=== PATIENT | female | born 1980 | race Caucasian/White ===

== ENCOUNTER 2016-10-26 18:17 | Emergency (ER) | payer OTHER ==
[2016-10-26 18:29] VITALS: BP 116/78
[2016-10-26] MEDS ORDERED: ONDANSETRON HCL/PF 2 MG/ML VIAL IV ONE (18:37)
[2016-10-26] MEDS ORDERED: NORMAL SALINE 1,000 ML IV ONE (18:37)
[2016-10-26] MEDS ORDERED: ONDANSETRON HCL/PF 2 MG/ML VIAL ONE (18:48)
[2016-10-26 19:07] LABS: Hematocrit 38.6 % (37.0-47.0); Hemoglobin 13.6 gm/dL (12.5-16.0); Mean Cell Volume 88.3 fl (78-100); Mean Corpuscular Hemoglobin 31.1 pg (27-31); Mean Corpuscular Hgb Conc 35.2 g/dl (32-36); Neutrophil # 10.1 K/mm3 (1.3-6.0); Neutrophil % 85.2 % (42-75.0); Platelet Count 284 K/mm3 (150-450); Red Blood Count 4.37 M/mm3 (4.2-5.4); Red Cell Distribution Width 11.8 % (11.5-14.0); White Blood Count 11.9 K/mm3 (4.0-10.5)
--- NOTE | 2016-10-26 19:08 | ERNOTE ---
Medical Problem HPI - Narrative Date of Service: 10/26/16 - General Chief Complaint: Flu Symptoms Time Seen by Provider: 10/26/16 18:32 Source: patient, RN notes reviewed Exam Limitations: no limitations - Immun/Allergies/Home Medications Immunizations: IMMUNIZATION HX Immunizations Up to Date Yes History of Influenza Vaccine No Hx Pneumococcal Vaccination No Allergies/Adverse Reactions: Allergies amoxicillin [Amoxicillin] Adverse Reaction (Mild, Verified 10/26/16 18:29) RASH azithromycin [From Zithromax Z-Josemanuel] Adverse Reaction (Mild, Verified 10/26/16 18 :29) Itching cefdinir [Cefdinir] Adverse Reaction (Mild, Verified 10/26/16 18:29) TWITCHING clindamycin Adverse Reaction (Mild, Verified 10/26/16 18:29) RASH, HEADACHE Home Medications: HOME MEDICATIONS ALPRAZolam [Xanax] 0.5 - 1 mg PO BID PRN 04/28/15 [Last Taken Unknown] Albuterol Sulfate [Proair Hfa] 2 puff IH Q4H PRN 04/28/15 [Last Taken Unknown] Levonorgestrel [Mirena] 1 each IY ONCE 04/28/15 [Last Taken Unknown] Omeprazole [Prilosec] 20 mg PO DAILY 04/28/15 [Last Taken Unknown] Ondansetron [Zofran Odt] 8 mg PO Q8H PRN #12 tab 10/26/16 [Last Taken Unknown] - History of Present History Narrative: 35 y/o female ambulatory to ED for '"flu" symptoms that began yesterday. She reports nausea, vomiting, body aches, chills and watery diarrhea. Date (Duration): 10/25/16 Timing: constant Review of Systems - Review of Systems Constitutional: Present: chills, diaphoresis, fatigue, malaise EYE: Present: no symptoms reported ENT: Absent: nose congestion, sore throat Respiratory: Present: shortness of breath. Absent: cough, wheezing Cardiology: Present: palpitations. Absent: chest pain Gastrointestinal/Abdominal: Present: nausea, vomiting, diarrhea Genitourinary: Absent: frequency, dysuria Musculoskeletal: Present: muscle pain. Absent: joint pain Skin: Absent: rash, lesions Neurological: Present: headache, dizziness/light-headedness Endocrine: Present: no symptoms reported Hematologic/Lymphatic: Present: no symptoms reported Psych: Present: anxiety - Patient's Past Medical History Patient History - Medical: Anxiety Patient History - Cardiac/Respiratory: No pertinent hx Patient History - Cancer: No Hx of Cancer Patient History - Surgical Procedures: , D & C, Other LMP (females 10-50): IUD - Family History Mother Family History - Cardiac/Respiratory: Hypertension Father Family History - Cardiac/Respiratory: Hypertension - Social History Living Situations: home - Immunizations History of Influenza Vaccine: No Physical Exam - Physical Exam General Appearance: Present: wd/wn, alert, mild distress, anxious, crying Neck: Present: normal inspection, nontender, supple Respiratory: Present: no respiratory distress, normal breath sounds, no accessory muscle use, lungs clear Cardiovascular/Chest: Present: regular rate, rhythm, no murmur, normal peripheral pulses Gastrointestinal/Abdominal: Present: normal bowel sounds, nontender, nondistended, soft Back Exam: Present: normal inspection, no CVA tenderness, no vertebral tenderness Extremity Exam: Present: normal inspection, no edema, normal range of motion Neurological Exam: Present: alert, oriented, no motor/sensory deficits Skin Exam: Present: normal color, warm/dry ED Progress - Results and Orders Patient's Lab Results:: I have reviewed the patient's lab results. - Vital Signs Patient's Vital Signs:: I have reviewed the patient's vital signs. Vital Signs: Vital Signs 10/26/16 18:25 Temperature 37.3 C Pulse Rate 115 H Respiratory 19 Rate Blood Pressure 116/78 O2 Sat by Pulse 100 Oximetry - Progress/Reassessment Chief Complaint: Flu Symptoms Progress:: Improved Progress Note-Subjective: Verbalizes feeling much better after IVF bolus and Zofran. One Zofran ODT sent home with patient for later tonight if needed. Departure - Departure Clinical Impression: Viral gastroenteritis Disposition: Home self-care Condition: Good Instructions: Viral Gastroenteritis, Adult, [id number] Additional Instructions: Liquids as discussed Tylenol for fever/aches (ibuprofen may upset your stomach) No anti-diarrhea medications Follow up as needed Prescriptions: Ondansetron [Zofran Odt] 8 mg PO Q8H PRN #12 tab PRN Reason: Nausea
[2016-10-26 19:20] LABS: Albumin * 4.1 gm/dl (3.4-5.0); Anion Gap 16.3 mmol/L (6.8-13.8); BUN/Creatinine Ratio 17.3 (9.0-21.6); Bilirubin, Total 0.9 mg/dL (0.0-1.1); Ca. Corrected For Albumin 8.6 mg/dL (8.4-10.2); Carbon Dioxide 24.4 mmol/L (24-32.6); Potassium 3.7 mmol/L (3.4-4.6); Total Protein 7.7 gm/dL (6.2-8.2)
[2016-10-26] MEDS ORDERED: ONDANSETRON 4 MG TAB.RAPDIS PO ONE (20:04)
[2016-10-26] MEDS ORDERED: ONDANSETRON 4 MG TAB.RAPDIS ONE (20:09)
== END 2016-10-26 20:17 | disposition home or self-care (01) ==
LOC: ER 18:17
DX: A08.4 Viral intestinal infection, unspecified (principal)

== ENCOUNTER 2016-10-28 11:35 | Emergency (ER) | payer OTHER ==
--- NOTE | 2016-10-28 12:33 | ERNOTE ---
Chest Pain/Cardiac HPI Date of Service: 10/28/16 Chief Complaint: Palpitations Time Seen by Provider: 10/28/16 11:59 Source: patient, RN notes reviewed Exam Limitations: no limitations Immunizations: IMMUNIZATION HX Immunizations Up to Date Yes History of Influenza Vaccine Yes Hx Pneumococcal Vaccination No Allergies/Adverse Reactions: Allergies amoxicillin [Amoxicillin] Adverse Reaction (Mild, Verified 10/28/16 11:49) RASH azithromycin [From Zithromax Z-Josemanuel] Adverse Reaction (Mild, Verified 10/28/16 11 :49) Itching cefdinir [Cefdinir] Adverse Reaction (Mild, Verified 10/28/16 11:49) TWITCHING clindamycin Adverse Reaction (Mild, Verified 10/28/16 11:49) RASH, HEADACHE Home Medications: HOME MEDICATIONS Albuterol Sulfate [Proair Hfa] 2 puff IH Q4H PRN 04/28/15 [Last Taken Unknown] Levonorgestrel [Mirena] 1 each IY ONCE 04/28/15 [Last Taken Unknown] Omeprazole [Prilosec] 20 mg PO PRN PRN 04/28/15 [Last Taken Unknown] Pain Score #1 Pain Score: 0 Narrative: 35 y/o female ambulatory to ED for intermittent palpations that began earlier this week. She was seen 2 days ago with vomiting and diarrhea. She was given IVF and Zofran. She felt much better afterward and had no further vomiting or diarrhea. She also reports being under a lot of stress due to breaking up with her significant other and issues with her mother who has a drug problem. Timing: intermittent Associated Symptoms: Present: cough, palpitations. Absent: headache, dizziness , syncope, shortness of breath, diaphoresis, fever/chills, nausea, vomiting, abdominal pain, back pain Prior Treatment: Reports: recently seen Review of Systems - Review of Systems Constitutional: Present: recent illness. Absent: weakness, fatigue EYE: Present: no symptoms reported ENT: Present: no symptoms reported Respiratory: Present: See HPI Cardiology: Present: palpitations. Absent: chest pain, syncope Gastrointestinal/Abdominal: Present: See HPI Genitourinary: Present: no symptoms reported Musculoskeletal: Present: See HPI Skin: Present: no symptoms reported Neurological: Absent: headache, dizziness/light-headedness, weakness, numbness, tingling Endocrine: Present: no symptoms reported Hematologic/Lymphatic: Present: no symptoms reported Psych: Present: anxiety - Patient's Past Medical History Patient History - Medical: Anxiety Patient History - Cardiac/Respiratory: No pertinent hx Patient History - Cancer: No Hx of Cancer Patient History - Surgical Procedures: , D & C, Other LMP (females 10-50): IUD - Family History Mother Family History - Cardiac/Respiratory: Hypertension Father Family History - Cardiac/Respiratory: Hypertension - Social History Living Situations: home Smoking Status: Never smoker Alcohol Use: none Drug Use: none Physical Exam - Physical Exam General Appearance: Present: wd/wn, alert, anxious Neck: Present: normal inspection, nontender, supple. Absent: thyromegaly Respiratory: Present: no respiratory distress, normal breath sounds, no accessory muscle use, lungs clear Cardiovascular/Chest: Present: regular rate, rhythm, no murmur, normal peripheral pulses Neurological Exam: Present: alert, oriented, normal mood/affect, no motor/ sensory deficits Skin Exam: Present: normal color, warm/dry ED Progress - Results and Orders Patient's Lab Results:: I have reviewed the patient's lab results. - Vital Signs Patient's Vital Signs:: I have reviewed the patient's vital signs. Vital Signs: Vital Signs 10/28/16 11:43 Pulse Rate 92 Respiratory 16 Rate Blood Pressure 108/87 O2 Sat by Pulse 97 Oximetry - EKG EKG: NSR EKG read: Interp. by me - Progress/Reassessment Chief Complaint: Palpitations Progress:: Unchanged Progress Note-Subjective: Reported suddenly feeling like she was having palpitations while I was in room - monitor showed an isolated PVC at that time, symptoms lasted only seconds 10/28/16 13:46 Discussed lab and EKG results - all unremarkable. No further palpitations while in dept. Plan - Plan Plan: Patient has Xanax at home to take if needed. Reports she does not like using it d/t it making her tired. Discussed stress management and need to see her PCP if symptoms continue. Departure - Departure Clinical Impression: Anxiety, Intermittent palpitations Disposition: Home Follow Up Needed Condition: Good Instructions: Palpitations, [id number] Additional Instructions: Follow up with your doctor if symptoms worsen or persist Referrals: Moises Manriquez, [Primary Care Provider] -
[2016-10-28 12:34] LABS: Hematocrit 37.1 % (37.0-47.0); Mean Cell Volume 87.7 fl (78-100); Mean Corpuscular Hemoglobin 30.7 pg (27-31); Mean Platelet Volume 9.1 fl (6.0-9.5); Neutrophil # 2.2 K/mm3 (1.3-6.0); Neutrophil % 45.4 % (42-75.0); Platelet Count 257 K/mm3 (150-450); Red Blood Count 4.23 M/mm3 (4.2-5.4); Red Cell Distribution Width 11.9 % (11.5-14.0); White Blood Count 4.8 K/mm3 (4.0-10.5)
[2016-10-28 12:57] LABS: Albumin * 3.8 gm/dl (3.4-5.0); Anion Gap 13.6 mmol/L (6.8-13.8); BUN/Creatinine Ratio 15.3 (9.0-21.6); Bilirubin, Total 0.3 mg/dL (0.0-1.1); Ca. Corrected For Albumin 8.5 mg/dL (8.4-10.2); Calcium * 8.7 mg/dL (7.9-10.9); Potassium 3.6 mmol/L (3.4-4.6); TSH * 2.68 uIU/mL (0.358-3.74); Total Protein 7.6 gm/dL (6.2-8.2)
[2016-10-28 13:44] VITALS: BP 111/73
== END 2016-10-28 13:45 | disposition home or self-care (01) ==
LOC: ER 11:35
DX: F41.9 Anxiety disorder, unspecified (principal); R00.2 Palpitations

== ENCOUNTER 2017-07-18 17:08 | Emergency (ER) | payer OTHER ==
[2017-07-18 17:36] LABS: Hematocrit 39.4 % (37.0-47.0); Hemoglobin 13.5 gm/dL (12.5-16.0); Mean Cell Volume 89.7 fl (78-100); Mean Corpuscular Hemoglobin 30.8 pg (27-31); Mean Corpuscular Hgb Conc 34.3 g/dl (32-36); Mean Platelet Volume 8.8 fl (6.0-9.5); Neutrophil # 4.6 K/mm3 (1.3-6.0); Neutrophil % 58.6 % (42-75.0); Platelet Count 289 K/mm3 (150-450); Red Blood Count 4.39 M/mm3 (4.2-5.4); Red Cell Distribution Width 11.9 % (11.5-14.0); White Blood Count 7.9 K/mm3 (4.0-10.5)
--- NOTE | 2017-07-18 17:46 | ERNOTE ---
Abdominal HPI - Narrative Date of Service: 07/18/17 - General Chief Complaint: Abdominal Pain Time Seen by Provider: 07/18/17 17:26 Source: patient Exam Limitations: no limitations - Immun/Allergies/Home Medications Immunizatons: IMMUNIZATION HX Immunizations Up to Date Yes History of Influenza Vaccine Yes Hx Pneumococcal Vaccination No Allergies/Adverse Reactions: Allergies amoxicillin [Amoxicillin] Adverse Reaction (Mild, Verified 07/18/17 17:19) RASH azithromycin [From Zithromax Z-Josemanuel] Adverse Reaction (Mild, Verified 07/18/17 17 :19) Itching cefdinir [Cefdinir] Adverse Reaction (Mild, Verified 07/18/17 17:19) TWITCHING clindamycin Adverse Reaction (Mild, Verified 07/18/17 17:19) RASH, HEADACHE Home Medications: HOME MEDICATIONS Albuterol Sulfate [Proair Hfa] 2 puff IH Q4H PRN 04/28/15 [Last Taken Unknown] Levonorgestrel [Mirena] 1 each IY ONCE 04/28/15 [Last Taken Unknown] Omeprazole [Prilosec] 20 mg PO PRN PRN 04/28/15 [Last Taken Unknown] - History of Present Illness Narrative: Pt. comes in with R upper and lower quadrant abd pain. Pt. denies any SOB, CP, NVD, fever, alleviating factors, aggravating factors, or prehospital treatment other than going to the [facility] and being sent here for possible appy. Pt. has a reported history of colon cancer removed. Review of Systems - Review of Systems Constitutional: Present: no symptoms reported. Absent: recent illness, fever, chills, weakness, fatigue, malaise EYE: Present: no symptoms reported. Absent: eye pain, double vision ENT: Present: no symptoms reported. Absent: nose pain, nose congestion, nasal drainage, sore throat Respiratory: Present: no symptoms reported. Absent: shortness of breath, cough , wheezing Cardiology: Present: no symptoms reported. Absent: chest pain, palpitations, edema Gastrointestinal/Abdominal: Present: abdominal pain. Absent: nausea, vomiting, diarrhea Genitourinary: Present: no symptoms reported. Absent: frequency, decreased urinary output Musculoskeletal: Present: no symptoms reported. Absent: back pain, joint pain Skin: Present: no symptoms reported. Absent: rash, change in hair/nails Neurological: Present: no symptoms reported. Absent: headache, dizziness/light- headedness, numbness, tingling All Other Systems: All systems neg except as marked - Patient's Past Medical History Patient History - Medical: No pertinent hx Patient History - Cardiac/Respiratory: Asthma Patient History - Cancer: Colon, Surgical Treatment Patient History - Surgical Procedures: Colon Resection - rectum, Patient History - Other: None - Family History Mother Family History - Cardiac/Respiratory: Hypertension Father Family History - Cardiac/Respiratory: Hypertension - Social History Psych History: Hx of Anxiety, Current tx/ever been on anti-depressants or anti- anxiety meds Smoking Status: Never smoker Have you smoked in the past 12 months: No - Immunizations Immunizations Up to Date: Yes Hx Pneumococcal Vaccination: No History of Influenza Vaccine: Yes Physical Exam - Physical Exam General Appearance: Present: wd/wn, alert, no apparent distress Head Exam: Present: normal inspection, no evidence of injury Eye Exam: Normal inspection: bilateral, PERRL: bilateral, EOMI: bilateral Respiratory: Present: no respiratory distress, normal breath sounds, no accessory muscle use, chest nontender, lungs clear Cardiovascular/Chest: Present: regular rate, rhythm, no murmur, normal peripheral pulses Gastrointestinal/Abdominal: Present: normal bowel sounds, nondistended, soft, no organomegaly, tenderness - pinpoint tenderness R mid bdomen Back Exam: Present: normal inspection, no CVA tenderness Extremity Exam: Present: normal inspection Neurological Exam: Present: alert, oriented, normal mood/affect, no motor/ sensory deficits Skin Exam: Present: normal color, warm/dry. Absent: pallor, skin rash ED Progress - Date and Time Seen: Date and Time: 07/18/17 18:[address] Villalobos and as pt. has hx of cancer we will CT abdomen as there is no evidence for acute belly pain on plain film he recommends obtaining a CT scan - Results and Orders Patient's Lab Results:: I have reviewed the patient's lab results. - Vital Signs Patient's Vital Signs:: I have reviewed the patient's vital signs. Vital Signs: Vital Signs 07/18/17 17:14 Temperature 37.1 C Pulse Rate 82 Respiratory 14 Rate Blood Pressure 105/69 O2 Sat by Pulse 95 Oximetry - X-Ray X-Ray #1 X-Ray: abdomen Interpretation: Interp. by me X-ray Comments: mild stool retention no free air, no obstructive gas pattern - CT/Ultrasound CT/Ultrasound Narrative: CT Abdomen/Pelvis W/C * INDICATION: R mid abd pain prev colon CA. Additional technologist comments: Right lower quadrant pain for the past three days. TECHNIQUE: CT of the abdomen and pelvis with Isovue-370 IV contrast including delayed images. Coronal reformatted images were performed. Oral contrast was also administered. Individualized dose optimization technique was used for the performed procedure including automated exposure control, adjustment of the mA and/or kV according to patient size and/or the iterative reconstruction technique. COMPARISON: CT of the abdomen and pelvis dated 10/20/2010 FINDINGS: No free air, free fluid, or fluid collection. Lower chest: The visualized lower lungs are aerated. No pleural or pericardial effusion. ABDOMEN: Liver: There is a 1 cm low-attenuation focus of the left hepatic lobe cyst. There are other scattered subcentimeter low attenuating lesions throughout the liver which are too small to characterize by CT. Otherwise, the liver enhances homogeneously. Gallbladder and biliary: Normal gallbladder without radiopaque stone. Normal caliber bile ducts. Spleen: Normal spleen. Pancreas: The pancreas enhances homogeneously without focal mass, ductal dilation, or peripancreatic inflammatory changes. Adrenal glands: Normal adrenal glands. Kidneys and ureters: There is a 1.1 cm low attenuating lesion in the superior pole the right kidney which is consistent with a cyst. Otherwise, there are numerous scattered subcentimeter hypodensities within both kidneys which are too small to characterize by CT. GI tract: The stomach is distended with debris and appears normal. Small bowel and colon are of normal caliber. The patient is status post partial sigmoidectomy with anastomotic staple line visualized. The appendix is not definitely visualized. Vascular structures: Normal caliber abdominal aorta. The celiac artery, SMA, bilateral renal arteries, and LOIS are patent. Portal and mesenteric venous structures are patent. There are prominent parametrial vasculature with reflux seen within within a prominent left ovarian vein. Lymph nodes: No lymphadenopathy in the abdomen or pelvis. PELVIS: Genitourinary system: The urinary bladder is underdistended and poorly evaluated. An intrauterine device is seen within the uterus. SKELETAL STRUCTURES AND SOFT TISSUES: No fracture or destructive lesions in the visualized skeleton. IMPRESSION: 1. Nonobstructive bowel gas pattern. Prior partial sigmoidectomy. 2. The appendix is not definitely visualized, however there are no secondary signs of acute appendicitis. Lack of mesenteric fat makes evaluation of the appendix difficult. 3. Bilateral renal cysts and hepatic cyst. Multiple other subcentimeter low- attenuation foci within both kidneys and the liver are too small to characterize by CT. 4. Prominent parametrial vasculature with reflux into a distended left ovarian vein which can be seen with pelvic congestion syndrome. Electronically signed by Katerin López D.O.. - Progress/Reassessment Chief Complaint: Abdominal Pain Progress:: Unchanged Departure Clinical Impression: Renal cyst, Liver cyst - Departure Disposition: Home self-care Condition: Good Instructions: Abdominal Pain, Adult, [id number] Additional Instructions: Please follow up with primary provider to follow up and monitor cystic lesions and while these aren't terribly painful or dangerous in themselves they can become a problem so follow up is important. Referrals: Moises Manriquez, [Primary Care Provider] -
[2017-07-18 17:50] LABS: Albumin * 3.9 gm/dl (3.4-5.0); Anion Gap 11.5 mmol/L (6.8-13.8); BUN/Creatinine Ratio 17.7 (9.0-21.6); Bilirubin, Total 0.5 mg/dL (0.0-1.1); Ca. Corrected For Albumin 8.4 mg/dL (8.4-10.2); Calcium * 8.6 mg/dL (7.9-10.9); Carbon Dioxide 28.5 mmol/L (24-32.6); Total Protein 7.7 gm/dL (6.2-8.2)
[2017-07-18] MEDS ORDERED: DIATRIZOATE MEGLUMINE, SODIUM 30 ML BTL ONE (18:31)
[2017-07-18 19:58] VITALS: BP 107/60
== END 2017-07-18 21:20 | disposition home or self-care (01) ==
LOC: ER 17:08
DX: N28.1 Cyst of kidney, acquired (principal); K76.89 Other specified diseases of liver; Z85.038 Personal history of other malignant neoplasm of large intestine